=== PATIENT | female | born 1930 | race Caucasian/White ===

== ENCOUNTER 2017-07-02 16:58 | Inpatient (IN) | payer OTHER ==
[2017-07-02 18:23] LABS: Eosinophils % 0.8 % (0-4.4)
[2017-07-02 18:27] LABS: Protime INR 1.4
[2017-07-02 18:29] LABS: Absolute Monocytes 1.3 K/uL (0.1-1.3); Absolute Neutrophil 12.9 K/uL (1.8-8.0); Basophils % 0.4 % (0-1.3); Hematocrit 41.3 % (36.0-45.0); Lymphocytes % 12.3 % (15.3-44.8); MCH 31.6 pg (27.0-35.0); MCV 94.2 fL (80-100); MPV 7.6 fL (7.6-11.3); Monocytes % 8.1 % (3.3-12.3); RBC Red Blood Cell Count 4.39 M/uL (3.86-4.86)
[2017-07-02 18:40] LABS: Albumin 3.2 g/dL (3.2-5.5); Bilirubin Direct 0.2 mg/dL (0-0.2); Bilirubin Total 0.9 mg/dL (0.3-1.2); Magnesium 1.7 mg/dL (1.8-2.5); Protein, Total 6.7 g/dL (6.0-8.3)
[2017-07-02] MEDS ORDERED: NA CHLORIDE 0.9% 1,000 ML ONE (18:40)
[2017-07-02] MEDS ORDERED: NA CHLORIDE 0.9% 500 ML ONE (18:40)
--- NOTE | 2017-07-02 18:40 | RAD REPORT ---
EXAM DESCRIPTION: CT - Stone Protocol - 07/02/2017 6:19 pm CLINICAL HISTORY: Abdominal pain. Urinary tract infection COMPARISON: None. TECHNIQUE: Computed axial tomography of the abdomen pelvis was obtained without oral or IV contrast. Lack of IV and oral contrast limits evaluation of solid organs, bowel, and vessels. Coronal reformat christopher images were obtained and reviewed. All CT scans are performed using dose optimization technique as appropriate and may include automated exposure control or mA/KV adjustment according to patient size. FINDINGS: The right kidney is absent. Moderate left hydronephrosis is present. The left ureter is ma rkedly dilated. It is tortuous. Faint punctate calcifications within the renal medulla are present. A ureteral calculus is not seen. The bladder is markedly distended. A gallstone is seen. The gallbladder wall is not thickened. A small liver cyst is present. Spleen, pancreas and adrenals appear grossly normal There is no evidence of diverticulitis. The appendix appears normal. The rectum is distended with stool measuring 6.8 centimeters. IMPRESSION: Moderate left hydronephrosis with marked left hydroureter. Given the bladder distention this may be secondary to vesicoureteral reflux. Faint punctate left renal calculi Absent right kidney Cholelithiasis without evidence of cholecystitis
[2017-07-02 18:42] LABS: CKMB Creatine Kinase MB 3.4 ng/ml (0.3-4.0)
[2017-07-02] MEDS ORDERED: CEFTRIAXONE/SWI 1gm 1 GM/10 ML SYR ONE (18:43)
--- NOTE | 2017-07-02 18:53 | RAD REPORT ---
EXAM DESCRIPTION: Maria Elena Single View07/02/2017 6:43 pm CLINICAL HISTORY: cough COMPARISON: none FINDINGS: The lungs appear clear of acute infiltrate. A calcified granuloma is present within the r ight lung. The heart is normal size IMPRESSION: No acute abnormalities displayed
--- NOTE | 2017-07-02 19:02 | EDPHYS ---
Physician Documentation [facility] Name: Giovanni Walters Age: 87 yrs Sex: Female : 1930 Arrival Date: 07/02/2017 Time: 16:58 Bed 5 Private MD: ED Physician Michael Vargas HPI: 07/02 18:05 This 87 yrs old Female presents to ER via EMS with complaints of Urinary gene Problem. 18:05 The patient presents with abdominal pain in the lower abdomen. Onset: The gene symptoms/episode began/occurred 3 day(s) ago. The symptoms do not radiate. Severity of pain: At its worst the pain was mild moderate. Historical: - Allergies: 17:01 Morphine; ch 17:01 Cortisone; ch - Home Meds: 17:38 Eliquis 2.5 mg oral tab 1 tab 2 times per day [Active]; sodium bicarb 650mg twice a day ch [Active]; Mucinex 600 mg oral Ta12 1 tab as needed [Active]; nitrofurantoin macrocrystal 100 mg Oral cap 1 cap once daily for pt just finished on 07/01/17, was to treat UTI [Active]; sodium chloride 2gm tablets twice a day [Active]; tylenol 325mg two pills prn fever or pain [Active]; Benadryl 25 mg Oral cap 1 cap as needed for itching. [Active]; Multivitamins With Fluoride oral oral [Active]; furosemide 40 mg Oral tab 1 tab at 8am and 2 pm [Active]; - PMHx: 17:38 sepsis; acute kidney failure; acidosis; generalized muscle weakness-pt can walk; ch Anemia; chronic kidney disease; Atrial Fib; CHF; Hypertension; absence of kidney; Diabetes - NIDDM; hypoosmolality, hyponatremia, hypocalcemia; osteoarthritis; loss of bone density; hallucinations; falls; UTI; e coli uti; cognitive communication deficit; pressure sores; encephalopathy; cystitis; - Immunization history:: Adult Immunizations up to date. - Social history:: Smoking status: Patient/guardian denies using tobacco. - Family history:: not pertinent. ROS: 18:05 Constitutional: Negative for fever, chills, and weight loss, Eyes: Negative for injury, gene pain, redness, and discharge, ENT: Negative for injury, pain, and discharge, Neck: Negative for injury, pain, and swelling, Cardiovascular: Negative for chest pain, palpitations, and edema, Respiratory: Negative for shortness of breath, cough, wheezing, and pleuritic chest pain, Back: Negative for injury and pain, : Negative for injury, bleeding, discharge, and swelling, MS/Extremity: Negative for injury and deformity, Skin: Negative for injury, rash, and discoloration, Neuro: Negative for headache, weakness, numbness, tingling, and seizure, Psych: Negative for depression, anxiety, suicide ideation, homicidal ideation, and hallucinations, Allergy/Immunology: Negative for hives, rash, and allergies, Endocrine: Negative for neck swelling, polydipsia, polyuria, polyphagia, and marked weight changes, Hematologic/Lymphatic: Negative for swollen nodes, abnormal bleeding, and unusual bruising. 18:05 Abdomen/GI: Positive for abdominal pain, of the suprapubic area, right lower quadrant and left lower quadrant. Exam: 18:05 Constitutional: This is a well developed, well nourished patient who is awake, alert, gene and in no acute distress. Head/Face: Normocephalic, atraumatic. Eyes: Pupils equal round and reactive to light, extra-ocular motions intact. Lids and lashes normal. Conjunctiva and sclera are non-icteric and not injected. Cornea within normal limits. Periorbital areas with no swelling, redness, or edema. ENT: Nares patent. No nasal discharge, no septal abnormalities noted. Tympanic membranes are normal and external auditory canals are clear. Oropharynx with no redness, swelling, or masses, exudates, or evidence of obstruction, uvula midline. Mucous membranes moist. Neck: Trachea midline, no thyromegaly or masses palpated, and no cervical lymphadenopathy. Supple, full range of motion without nuchal rigidity, or vertebral point tenderness. No Meningismus. Chest/axilla: Normal chest wall appearance and motion. Nontender with no deformity. No lesions are appreciated. Cardiovascular: Regular rate and rhythm with a normal S1 and S2. No gallops, murmurs, or rubs. Normal PMI, no JVD. No pulse deficits. Back: No spinal tenderness. No costovertebral tenderness. Full range of motion. Female : Normal external genitalia. Skin: Warm, dry with normal turgor. Normal color with no rashes, no lesions, and no evidence of cellulitis. MS/ Extremity: Pulses equal, no cyanosis. Neurovascular intact. Full, normal range of motion. Neuro: Awake and alert, GCS 15, oriented to person, place, time, and situation. Cranial nerves II-XII grossly intact. Motor strength 5/5 in all extremities. Sensory grossly intact. Cerebellar exam normal. Normal gait. Psych: Awake, alert, with orientation to person, place and time. Behavior, mood, and affect are within normal limits. 18:05 Respiratory: the patient does not display signs of respiratory distress, Respirations: normal, Breath sounds: bronchial sounds, that are mild, rhonchi. Vital Signs: 17:01 Weight 68.04 kg; Height 5 ft. 4 in. (162.56 cm); Pain 0/10; ch 17:09 BP 147 / 75; Pulse 84; Resp 16; Temp 98.9; Pulse Ox 98% on R/A; ch 17:47 BP 118 / 57; Pulse 83; Resp 18; Pulse Ox 97% on R/A; hj 18:52 BP 133 / 72; Pulse 81; Resp 18; Pulse Ox 100% on 2 lpm NC; hj 19:10 BP 143 / 73; Pulse 86; Resp 19 S; Temp 97.5(O); Pulse Ox 99% on R/A; Pain 0/10; bb 20:15 BP 113 / 65; Pulse 75; Resp 18; Pulse Ox 96% on R/A; bb 17:01 Body Mass Index 25.75 (68.04 kg, 162.56 cm) ch MDM: 17:47 Patient medically screened. [facility] 18:07 Data reviewed: vital signs, nurses notes, lab test result(s), EKG, radiologic studies, [facility] CT scan, plain films. 07/02 18:04 Order name: Basic Metabolic Panel [facility] 07/02 18:04 Order name: BNP; Complete Time: 18:57 [facility] 07/02 18: Order name: CBC with Diff; Complete Time: 18:57 gene 07/02 18:04 Order name: Ckmb gene 07/02 18:04 Order name: CPK 07/02 18:04 Order name: LFT's gene 07/02 18:04 Order name: Magnesium gene 07/02 18: Order name: PT-INR; Complete Time: 18:57 07/02 18:04 Order name: Ptt, Activated; Complete Time: 18:57 [facility] 07/02 18:04 Order name: Troponin (emerg Dept Use Only); Complete Time: 18:57 [facility] 07/02 18:04 Order name: XRAY Chest (1 view); Complete Time: 18:57 [facility] 07/02 18:04 Order name: Lipase [facility] 07/02 18:04 Order name: TSH [facility] 07/02 18:05 Order name: Lipase [facility] 07/02 18:10 Order name: Blood Culture [facility] 07/02 18:40 Order name: Urine Culture 07/02 18:47 Order name: Urine Dipstick--Ancillary (enter results) 07/02 18:03 Order name: EKG; Complete Time: 18:04 07/02 18:03 Order name: Cardiac monitoring; Complete Time: 18:08 07/02 18:03 Order name: EKG - Nurse/Tech; Complete Time: 18:08 07/02 18:03 Order name: IV Saline Lock; Complete Time: 18:08 07/02 18:03 Order name: Labs collected and sent; Complete Time: 18:09 07/02 18:03 Order name: O2 Per Protocol; Complete Time: 18:09 07/02 18:03 Order name: O2 Sat Monitoring; Complete Time: 18:09 07/02 18:03 Order name: Urine Dipstick-Ancillary (obtain specimen); Complete Time: 18:43 07/02 18:04 Order name: Cardiac monitoring; Complete Time: 18:08 [facility] 07/02 18:04 Order name: EKG - Nurse/Tech; Complete Time: 18:08 [facility] 07/02 18:04 Order name: IV Saline Lock; Complete Time: 18:08 [facility] 07/02 18:04 Order name: Labs collected and sent; Complete Time: 18:08 [facility] 07/02 18:04 Order name: O2 Per Protocol; Complete Time: 18:08 [facility] 07/02 18:04 Order name: O2 Sat Monitoring; Complete Time: 18:08 [facility] 07/02 18:04 Order name: Urine Dipstick-Ancillary (obtain specimen); Complete Time: 18:44 [facility] 07/02 18:04 Order name: Hayes; Complete Time: 18:42 [facility] 07/02 18:04 Order name: CT Stone Protocol; Complete Time: 18:57 gene 07/02 19:09 Order name: CONS Physician Consult EDMS Administered Medications: 18:26 Drug: NS 0.9% 500 ml Route: IV; Rate: bolus; Site: right antecubital; hj 19:10 Follow up: IV Status: Completed infusion; IV Intake: 500ml bb 18:26 Drug: NS 0.9% 1000 ml Route: IV; Rate: 125 ml/hr; Site: right antecubital; hj 20:51 Follow up: IV Status: Infusion continued upon admission; IV Intake: 300ml bb 18:41 Drug: Rocephin - (cefTRIAXone) 1 grams Route: IVPB; Infused Over: 30 mins; Site: right iw antecubital; 20:53 Follow up: IV Status: Completed infusion; IV Intake: 10ml bb 19:10 Drug: Magnesium Sulfate 1 grams Route: IVPB; Infused Over: 1 hrs; Site: right bb antecubital; 20:10 Follow up: IV Status: Completed infusion; IV Intake: 100ml bb Disposition: 07/02/17 19:02 Hospitalization ordered by Letty Altamirano for Inpatient Admission. Preliminary diagnosis are Retention of urine, Hydronephrosis with ureteral stricture, not elsewhere classified - secondary to reflux. - Bed requested for Telemetry/MedSurg (Inpatient). - Status is Inpatient Admission. bb - Condition is Stable. - Problem is new. - Symptoms have improved. UTI on Admission? No Signatures: Dispatcher [employer] EDMS Marie Daly, RN Michael Ernandez ch, MD MD cha Chretien, Felicia RN DEBBY Ella Argueta RN RN bb Williams, Irene, RN RN Beto Gaspar RN RN Corrections: (The following items were deleted from the chart) 18:07 18:04 Chest Single View+RAD.RAD.BRZ ordered. EDMS EDMS 18:19 18:04 CBC+H.LAB.BRZ ordered. EDMS EDMS 18:19 18:04 PROTIME (+INR)+COAG.LAB.BRZ ordered. EDMS EDMS 18:19 18:04 PTT, ACTIVATED+COAG.LAB.BRZ ordered. EDMS EDMS 18:20 18:04 BASIC METABOLIC PANEL+C.LAB.BRZ ordered. EDMS EDMS 18:20 18:04 BNP+C.LAB.BRZ ordered. EDMS EDMS 18:20 18:04 CKMB+C.LAB.BRZ ordered. EDMS EDMS 18:20 18:04 CREATINE PHOSPHOKINASE+C.LAB.BRZ ordered. EDMS EDMS 18:20 18:04 HEPATIC FUNCTION+C.LAB.BRZ ordered. EDMS EDMS 18:20 18:04 MAGNESIUM+C.LAB.BRZ ordered. EDMS EDMS 18:20 18:04 TROPONIN (EMERG DEPT USE ONLY)+C.LAB.BRZ ordered. EDMS EDMS
--- NOTE | 2017-07-02 19:02 | ER ---
Nurse's Notes [facility] Name: Giovanni Walters Age: 87 yrs Sex: Female : 1930 Arrival Date: 07/02/2017 Time: 16:58 Bed 5 Private MD: Diagnosis: Retention of urine;Hydronephrosis with ureteral stricture, not elsewhere classified-secondary to reflux Presentation: 07/02 16:59 Presenting complaint: EMS states: pt took antibiotic for UTI, it got better but ch daughter states she started getting worse, c/o lower back pain and lethargy. Transition of care: patient was not received from another setting of care. Onset of symptoms was June 29, 2017. Care prior to arrival: None. 16:59 Method Of Arrival: EMS: [place] [facility] 16:59 Acuity: BETTY 3 Triage Assessment: 17:18 General: Appears in no apparent distress. uncomfortable, Behavior is calm, cooperative, hj appropriate for age. Pain:. 17:38 Neuro: Level of Consciousness is awake, alert, obeys commands, confused, Oriented to person. Respiratory: Reports cough that is productive. Historical: - Allergies: 17:01 Morphine; 17:01 Cortisone; - Home Meds: 17:38 Eliquis 2.5 mg oral tab 1 tab 2 times per day [Active]; sodium bicarb 650mg twice a day [Active]; Mucinex 600 mg oral Ta12 1 tab as needed [Active]; nitrofurantoin macrocrystal 100 mg Oral cap 1 cap once daily for pt just finished on 07/01/17, was to treat UTI [Active]; sodium chloride 2gm tablets twice a day [Active]; tylenol 325mg two pills prn fever or pain [Active]; Benadryl 25 mg Oral cap 1 cap as needed for itching. [Active]; Multivitamins With Fluoride oral oral [Active]; furosemide 40 mg Oral tab 1 tab at 8am and 2 pm [Active]; - PMHx: 17:38 sepsis; acute kidney failure; acidosis; generalized muscle weakness-pt can walk; Anemia; chronic kidney disease; Atrial Fib; CHF; Hypertension; absence of kidney; Diabetes - NIDDM; hypoosmolality, hyponatremia, hypocalcemia; osteoarthritis; loss of bone density; hallucinations; falls; UTI; e coli uti; cognitive communication deficit; pressure sores; encephalopathy; cystitis; - Immunization history:: Adult Immunizations up to date. - Social history:: Smoking status: Patient/guardian denies using tobacco. - Family history:: not pertinent. Screenin:18 Abuse screen: Denies threats or abuse. Denies injuries from another. Nutritional hj screening: No deficits noted. Tuberculosis screening: No symptoms or risk factors identified. Fall Risk None identified. Assessment: 17:34 General: Appears in no apparent distress. uncomfortable, slender, Behavior is calm, hj cooperative, appropriate for age. Pain: Complains of pain in left low back and right low back. Neuro: Level of Consciousness is awake, alert, obeys commands, confused, Oriented to person, place, time, situation, Appropriate for age. Cardiovascular: Capillary refill < 3 seconds Patient's skin is warm and dry. Respiratory: Airway is patent Respiratory effort is even, unlabored, Respiratory pattern is regular, symmetrical. Respiratory: Breath sounds with crackles. GI: No signs and/or symptoms were reported involving the gastrointestinal system. : Reports pain. EENT: No signs and/or symptoms were reported regarding the EENT system. Derm: No signs and/or symptoms reported regarding the dermatologic system. Musculoskeletal: No signs and/or symptoms reported regarding the musculoskeletal system. 18:50 Reassessment: Patient and/or family updated on plan of care and expected duration. Pain hj level reassessed. A\T\Ox2;. 18:51 Reassessment: total rizzo output approx 1100mls;. hj 19:10 General: Appears in no apparent distress. slender, Behavior is calm, cooperative. Pain: bb Denies pain. Neuro: Level of Consciousness is awake, alert, obeys commands, Oriented to person, place, situation. Cardiovascular: No deficits noted. Respiratory: Respiratory effort is even, unlabored. GI: No signs and/or symptoms were reported involving the gastrointestinal system. Derm: Skin is pink, warm \T\ dry. Musculoskeletal: Circulation, motion, and sensation intact. 19:11 : Rizzo in place to gravity drainage. bb 20:14 Reassessment: Patient and/or family updated on plan of care and expected duration. Pain bb level reassessed. Patient is alert, oriented x 3, equal unlabored respirations, skin warm/dry/pink. pt awaiting room assignment, family at bedside, IV intact, patent with fluids infusing. 20:31 Reassessment: Report called to Savana GUARDADO on second floor. Vital Signs: 17:01 Weight 68.04 kg; Height 5 ft. 4 in. (162.56 cm); Pain 0/10; ch 17:09 BP 147 / 75; Pulse 84; Resp 16; Temp 98.9; Pulse Ox 98% on R/A; ch 17:47 BP 118 / 57; Pulse 83; Resp 18; Pulse Ox 97% on R/A; hj 18:52 BP 133 / 72; Pulse 81; Resp 18; Pulse Ox 100% on 2 lpm NC; hj 19:10 BP 143 / 73; Pulse 86; Resp 19 S; Temp 97.5(O); Pulse Ox 99% on R/A; Pain 0/10; bb 20:15 BP 113 / 65; Pulse 75; Resp 18; Pulse Ox 96% on R/A; bb 17:01 Body Mass Index 25.75 (68.04 kg, 162.56 cm) ED Course: 16:58 Patient arrived in ED. 17:00 Beto Gaspar, RN is Primary Nurse. 17:00 Triage completed. 17:01 Arm band placed on left wrist. Patient placed in an exam room, on a stretcher, on pulse oximetry. 17:08 Primary Nurse role handed off by Beto Gaspar, RN 17:08 Marie Daly, RN is Primary Nurse. 17:19 Patient has correct armband on for positive identification. Placed in gown. Bed in low hj position. Call light in reach. Side rails up X 1. Adult w/ patient. 17:34 Beto Gaspar, RN is Primary Nurse. 17:47 Michael Vargas MD is Attending Physician. [facility] 18:02 Inserted saline lock: 22 gauge in right antecubital area, using aseptic technique. Blood collected. 18:02 Initial lab(s) drawn, by me, sent to lab. First set of blood cultures drawn by md. 18:[address] 2 18:14 EKG done, by service tech/welder. reviewed by Michael Vargas MD. [facility] 18:18 CT completed. Patient tolerated procedure well. Patient moved back from CT. mi 18:19 CT Stone Protocol In Process Unspecified. EDMS 18:42 X-ray completed. Portable x-ray completed in exam room. Patient tolerated procedure kc2 well. 18:43 XRAY Chest (1 view) In Process Unspecified. EDMS 18:43 Rizzo cath inserted, using sterile technique, 16 Fr., returned alfreda urine. Patient iw tolerated well. 19:01 Letty Altamirano MD is Hospitalizing Provider. gene 19:10 equipment monitor phototypesetting on. Pulse ox on. NIBP on. Warm blanket given. bb 19:10 No provider procedures requiring assistance completed. IV is patent, is intact, with bb fluids infusing freely, Patient admitted, IV remains in place. 19:42 Primary Nurse role handed off by Beto Gaspar, DEBBY bb 19:42 Ella Argueta RN is Primary Nurse. bb 20:21 Urine collected: Rizzo catheter specimen, alfreda colored, 950ml. oe Administered Medications: 18:26 Drug: NS 0.9% 500 ml Route: IV; Rate: bolus; Site: right antecubital; hj 19:10 Follow up: IV Status: Completed infusion; IV Intake: 500ml bb 18:26 Drug: NS 0.9% 1000 ml Route: IV; Rate: 125 ml/hr; Site: right antecubital; hj 20:51 Follow up: IV Status: Infusion continued upon admission; IV Intake: 300ml bb 18:41 Drug: Rocephin - (cefTRIAXone) 1 grams Route: IVPB; Infused Over: 30 mins; Site: right iw antecubital; 20:53 Follow up: IV Status: Completed infusion; IV Intake: 10ml bb 19:10 Drug: Magnesium Sulfate 1 grams Route: IVPB; Infused Over: 1 hrs; Site: right bb antecubital; 20:10 Follow up: IV Status: Completed infusion; IV Intake: 100ml bb Intake: 19:10 IV: 500ml; Total: 500ml. bb 20:10 IV: 100ml; Total: 600ml. bb 20:51 IV: 300ml; Total: 900ml. bb 20:53 IV: 10ml; Total: 910ml. bb Output: 20:24 Urine: 950ml (Rizzo); Total: 950ml. oe Outcome: 19:02 Decision to Hospitalize by Provider. gene 19:35 Instructed on the need for admit. bb 20:49 Admitted to Tele accompanied by pravin, family with patient, via stretcher, room 210, bb with chart, Report called to Savana GUARDADO by Julissa Riley RN 20:49 Condition: stable 20:53 Patient left the ED. bb Signatures: Dispatcher [employer] Marie Neal, RN RN Michael Stein MD MD cha Ballard, Brenda, RN RN Wanda Valerio RN RN iw gonzales, Amanda, chicken hanger EKG Tat1 Beto Gaspar RN RN hj Carr, Kelsie 2 Zak More [place] oe McGuire, Victoria 2
[2017-07-02 19:11] LABS: Thyroid Stimulating Hormone 1.2 uIU/mL (0.34-5.60)
[2017-07-02 19:15] LABS: Urine Blood NEGATIVE (NEG); Urine Glucose NEGATIVE (NEG); Urine Protein TRACE (NEG)
[2017-07-02] MEDS ORDERED: MAGNESIUM SULFATE 1 gm IVPB 1 GM/100 ML BAG IV ONE (19:25)
--- NOTE | 2017-07-02 19:49 | P.HP ---
Certification for Inpatient Patient admitted to: Inpatient With expected LOS: >2 Midnights Practitioner: I am a practitioner with admitting privileges, knowledge of patient current condition, hospital course, and medical plan of care. Services: Services provided to patient in accordance with Admission requirements found in Title 42 Section 412.3 of the Code of Federal Regulations Patient History Date of Service: 07/02/17 Reason for admission: urinary retention History of Present Illness: Ms Walters is an 87 years old woman with multiple medical problems including A.Fib anticoagulated with eliquis, HTN, CHF, DM II, who was admitted in [place] due to pneumonia and UTI, then she was [facility] to a [facility]hab. About a week ago, she start to be progressively more weak. Today the patient was unable to stand up from the bed. She was also complaining of lower abdominal pain. No history of nausea, vomiting, diarrhea, fever or chills. In ER she was found with abdominal distention, secondary to urinary retention. After place a rizzo catheter and decompress the bladder her distention and pain resolved. Lab work remarkable for leukocytosis 12.4K, creatinine 1.03 BUN 20. She was afebrile. - Past Medical/Surgical History -: DM II -: HTN -: A.Fib -: CHF Past Surgical History: Reviewed- Non-Contributory - Family History Family History: Reviewed- Non-Contributory - Social History Smoking Status: Never smoker Alcohol use: No CD- Drugs: No Place of Residence: [facility] Review of Systems 10-point ROS is otherwise unremarkable Physical Examination - Physical Exam General: Alert, In no apparent distress, Confused HEENT: Atraumatic, PERRLA, Mucous membr. moist/pink, EOMI, Sclerae nonicteric Neck: Supple, 2+ carotid pulse no bruit, No LAD, Without JVD or thyroid abnormality Respiratory: Clear to auscultation bilaterally, Normal air movement Cardiovascular: Regular rate/rhythm, Normal S1 S2 Gastrointestinal: Normal bowel sounds, No tenderness Musculoskeletal: No tenderness Integumentary: No rashes Neurological: Normal speech, Normal tone, Normal affect Lymphatics: No axilla or inguinal lymphadenopathy - Studies Laboratory Data (last 24 hrs) 07/02/17 18:10: PT 16.6 H, INR 1.40, APTT 32.1 07/02/17 18:10: WBC 16.4 H, Hgb 13.9, Hct 41.3, Plt Count 476 H 07/02/17 18:10: B-Natriuretic Peptide 292 H 07/02/17 18:10: Sodium 136, Potassium 4.0, BUN 20, Creatinine 1.03 H, Glucose 117, Magnesium 1.7 L, Total Bilirubin 0.9, AST 14, ALT 11, Alkaline Phosphatase 56, Lipase 27 07/02/17 18:03: PT Cancelled, INR Cancelled, APTT Cancelled 07/02/17 18:03: WBC Cancelled, Hgb Cancelled, Hct Cancelled, Plt Count Cancelled 07/02/17 18:03: B-Natriuretic Peptide Cancelled 07/02/17 18:03: Sodium Cancelled, Potassium Cancelled, BUN Cancelled, Creatinine Cancelled, Glucose Cancelled, Magnesium Cancelled, Total Bilirubin Cancelled, AST Cancelled, ALT Cancelled, Alkaline Phosphatase Cancelled Assessment and Plan - Problems (Diagnosis) (1) Urinary retention Current Visit: Yes Status: Acute (2) Hydronephrosis Current Visit: Yes Status: Acute Qualifiers: Hydronephrosis type: unspecified Qualified Code(s): N13.30 - Unspecified hydronephrosis (3) Diabetes mellitus Current Visit: Yes Status: Acute Qualifiers: Diabetes mellitus type: type 2 Diabetes mellitus intermediate teacher insulin use: without intermediate teacher use Diabetes mellitus complication status: with unspecified complications Qualified Code(s): E11.8 - Type 2 diabetes mellitus with unspecified complications (4) HTN (hypertension) Current Visit: Yes Status: Acute Qualifiers: Hypertension type: essential hypertension Qualified Code(s): I10 - Essential (primary) hypertension (5) Afib Current Visit: Yes Status: Acute Qualifiers: Atrial fibrillation type: chronic Qualified Code(s): I48.2 - Chronic atrial fibrillation - Plan The patient will be admitted due to urinary retention. CT abd/pelvis was remarkable for left moderate hydronephrosis and hydroureter. bladder distention noted, possible secondary to vesicoureteral reflux. Will cover with empiric antibiotic, and consult Dr Wick for evaluation and recommendations. Will resume her home medication once verified. - Advance Directives Does patient have a Living Will: No Does patient have a Durable POA for Healthcare: No - Code Status/Comfort Care Code Status Assessed: Yes Code Status: Full Code
[2017-07-02] MEDS ORDERED: ONDANSETRON 4 MG/2 ML VIAL IV PRN (20:35)
[2017-07-02] MEDS ORDERED: ACETAMINOPHEN 500 MG TAB PO PRN (20:35)
[2017-07-02] MEDS: INSULIN -REGULAR HUMAN 50 UNIT/0.5 ML ML SQ SCH (21:00)
[2017-07-03 05:10] LABS: Absolute Lymphocytes (CBC) 1.5 K/uL (0.7-4.9); Absolute Monocytes 1.4 K/uL (0.1-1.3); Basophils % 0.6 % (0-1.3); Eosinophils % 1.5 % (0-4.4); Hematocrit 35.8 % (36.0-45.0); Lymphocytes % 10.6 % (15.3-44.8); MCH 32.5 pg (27.0-35.0); MCV 93.3 fL (80-100); MPV 7.5 fL (7.6-11.3); Monocytes % 9.9 % (3.3-12.3); RBC Red Blood Cell Count 3.84 M/uL (3.86-4.86)
[2017-07-03 05:43] LABS: Potassium 3.7 mEq/L (3.6-5.0)
[2017-07-03] MEDS ORDERED: CEFTRIAXONE/SWI 1gm 1 GM/10 ML SYR ONE (06:07)
[2017-07-03] MEDS ORDERED: CEFTRIAXONE 1 GM/NS 50 ML 1 GM/50 ML BAG IV SCH (06:30)
[2017-07-03] MEDS: INSULIN -REGULAR HUMAN 50 UNIT/0.5 ML ML SQ SCH ×4 (07:30→21:00)
[2017-07-03] MEDS ORDERED: POTASSIUM 25 MEQ EFFERV TAB PO ONE (09:00)
--- NOTE | 2017-07-03 10:09 | EKG ---
Test Date: 2017-07-02 Test Time: 18:07:23 Furnace Tender: RIOS MEASUREMENT RESULTS: Intervals: Rate: 75 TX: QRSD: 94 QT: 386 QTc: 431 [place]: P: TX: QRS: 73 T: -75 INTERPRETIVE STATEMENTS: Atrial fibrillation ST & T wave abnormality, consider inferior ischemia Abnormal ECG Compared to ECG 11/16/1992 12:30:00 ST (T wave) deviation now present Possible ischemia now present Sinus rhythm no longer present Atrial premature complex(es) no longer present Electronically Signed On 07-03-17 10:07:47 CDT by Dakota Farley
--- NOTE | 2017-07-03 15:18 | PN ---
Date of Progress Note: 07/03/2017 Subjective: The patient seen and examined, chart reviewed, and case discussed with RN. The patient states that she feels sleepy, appears somewhat lethargic. Daughter at the bedside. Treatment plan e xplained. All questions answered. Review of Systems: Negative except as above. Medications: Reviewed. Physical Examination: Vital Signs: Temperature 98, heart rate 65, blood pressure 146/65, respirations 18, and O2 97% on 2 L via nasal cannula. General: Awake, alert, oriented x2, in some mild distress. Elderly female. CV: S1, S2. No murmurs. Regular rate and rhythm. Peripheral pulses present. Respiratory: clear to auscultation bilaterally. No wheezing. No stridor. No use of accessory musc les Gastrointestinal: Abdomen is soft, nontender, nondistended. Positive bowel sounds. Extremities: No clubbing, cyanosis, or edema. Neuro: Nonfocal. Laboratory Data: Sodium 133, potassium 3.7, chloride 99, CO2 29, BUN 19, creatinine 0.92, glucose 95 , and calcium 8.2. WBC 14.2, H and H 12.5, 35.8, platelets 359, and neutrophils 77%. Blood culture and urine culture pending. CT abdomen shows moderate left hydronephrosis with marked left hydrourete r, absent right kidney, cholelithiasis without acute cholecystitis. Chest x-ray, personally reviewed , shows no acute abnormalities. Assessment And Plan: An 87-year-old female with; 1.Acute urinary retention, urinary catheter placed. We will follow up with Dr. Wick's recommendati on. 2.Hydronephrosis secondary to above. 3.Diabetes mellitus type 2 without any complications without long-term use of insulin. 4.Essential hypertension. Resume home medications as appropriate. 5.Atrial fibrillation, paroxysmal. The patient is on Eliquis and will be held due to possible proce dure. 6.Congestive heart failure, unknown ejection fraction. We will continue with medications, fluid-res tricted diet. 7.Gastrointestinal and deep venous thrombosis prophylaxis with PPI and SCDs. No chemical anticoagul ation due to possible procedure. /BALJIT Voice ID: [id number] Report ID: [id number]
[2017-07-03] MEDS ORDERED: CARVEDILOL 6.25 MG TAB PO SCH (21:00)
[2017-07-03] MEDS ORDERED: CEFTRIAXONE/SWI 1gm 1 GM/10 ML SYR IV SCH (21:00)
--- NOTE | 2017-07-05 01:01 | DS ---
Date of Discharge: 07/03/2017 Admitting Diagnoses: 1.Urinary retention. 2.Hydronephrosis. 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 4.Essential hypertension. 5.Atrial fibrillation, chronic. Discharge Diagnoses: 1.Acute urinary retention. 2.Hydronephrosis. 3.Diabetes mellitus type 2 without any complications with long-term use of insulin. 4.Essential hypertension. 5.Atrial fibrillation, paroxysmal, on Eliquis. 6.Congestive heart failure,, unknown ejection fraction, chronic. Hospital Course: The patient is an 87-year-old female who came in with urinary retention. The patie nt was in the longterm and was found to be more progressively weak. The patient was admitted to the hospital, was found have a white count of 12,000. Her creatinine was 1.03. Her UA was negative. She had a CT scan, which was positive for moderate left hydronephrosis with marked left hydroureter . There was a faint punctate left renal calculi, absent right kidney, cholelithiasis incidentally fo und. Unfortunately, urology was unavailable. However, the patient was able to have urinary catheter placed with good urine output. Transfer was initiated in order to get the patient to [facility] with her previous urologist, Dr. Lopez. The patient was then accepted by the hospitalist service at [facility] and with Dr. Lopez consulting. The patient was transferred to [facility] in a stable [facility] ition. Total time spent transferring the patient was 32 minutes. Discharge Physical Examination: For physical exam findings, please see dictated note on the day of d ischarge. LAUREN Voice ID: [id number] Report ID: [id number]
== END 2017-07-03 23:00 | disposition short-term general hospital (02) | DRG 696 ==
LOC: ER 16:58 → ERHOLD 19:04 → 2ND 20:14
PROVIDERS: ADMIT Internal Medicine; ATTEND Internal Medicine
DX: R33.9 Retention of urine, unspecified (principal); N13.30 Unspecified hydronephrosis; E11.9 Type 2 diabetes mellitus without complications; I10 Essential (primary) hypertension; I48.0 Paroxysmal atrial fibrillation; I11.0 Hypertensive heart disease with heart failure; I50.9 Heart failure, unspecified; K80.20 Calculus of gallbladder without cholecystitis without obstruction; Z90.5 Acquired absence of kidney; Z79.01 Long term (current) use of anticoagulants; Z79.4 Long term (current) use of insulin
CPT/HCPCS: 36415; 51702; 71045; 74176; 76377; 80048; 80076; 81003; 82550; 82553; 82962; 83690; 83735; 83880; 84443; 84484; 85025; 85610; 85730; 87040; 87205; 93005; 96365; 99285; J0696; J3475; J7030